=== PATIENT | male | born 1970 | race Two or more races ===

== ENCOUNTER 2019-10-29 06:06 | Inpatient (IN) | payer OTHER ==
[2019-10-29] VITALS (16 sets, daily range): BP systolic 117–158; BP diastolic 74–93
[~2019-10-29] VITALS: Ht 175.3 cm; Wt 88.9 kg
[~2019-10-29 06:06] MED LIST: VALIUM5 MG ORAL
[2019-10-29] MEDS ORDERED: Rocuronium Bromide 50mg/5ml Inj IV ONE (06:31)
[2019-10-29] MEDS ORDERED: Sodium Chloride 10ml vial INJ ONE (06:38)
[2019-10-29] MEDS ORDERED: LR 1000ml 1,000 ML IVLG SCH (06:50)
[2019-10-29] MEDS ORDERED: Pantoprazole Inj IVP ONE (07:00)
[2019-10-29] MEDS ORDERED: Meperidine 25mg/0.5ml Inj (FOR RIGORS ONLY) IV PRN (07:00)
[2019-10-29] MEDS ORDERED: Propofol 1,000mg/ 100ml btl IV ONE (07:00)
[2019-10-29] MEDS ORDERED: Vancomycin 1gm/D5W 275ml IVPB SCH ×2 (07:00)
[2019-10-29] MEDS ORDERED: LORazepam Inj 2mg/ml 1ml IV PRN (07:00)
[2019-10-29] MEDS ORDERED: oxyCODONE HCL/Acetaminophen 5/325mg ORAL PRN (07:00)
[2019-10-29] MEDS ORDERED: Labetalol 5mg/ml 20ml vial IV PRN (07:00)
[2019-10-29] MEDS ORDERED: HYDROcodone/Acetamin 7.5/325 tab ORAL PRN (07:00)
[2019-10-29] MEDS ORDERED: HYDROcodone/Acetamin 5/325 tab ORAL PRN (07:00)
[2019-10-29] MEDS ORDERED: Hydromorphone 0.5mg/0.5ml inj IVP PRN (07:00)
[2019-10-29] MEDS ORDERED: Metoclopramide 10mg/2ml Inj IVP PRN ×2 (07:00→12:45)
[2019-10-29] MEDS ORDERED: Midazolam 2mg/2ml Inj IVP PRN (07:00)
[2019-10-29] MEDS ORDERED: Acetaminophen (Non formulary) 100 ML IV ONE (07:00)
[2019-10-29] MEDS ORDERED: Atropine Sulfate 0.4mg/ml inj IVP PRN (07:00)
[2019-10-29] MEDS: Magnesium Sulfate 1gm/100ml IVPB SCH ×2 (07:00→08:00)
[2019-10-29] MEDS ORDERED: DiphenhydrAMINE 50mg/ml Inj IVP PRN (07:00)
[2019-10-29] MEDS ORDERED: fentaNYL 100 mcg/2 mL IV PRN (07:00)
[2019-10-29] MEDS ORDERED: Ketorolac 30mg Inj IV PRN ×2 (07:00)
[2019-10-29] MEDS ORDERED: Dexamethasone 4mg/ml vial ONE (07:07)
[2019-10-29] MEDS ORDERED: Lidocaine 1% MPF 10mg/ml 5ml ONE (07:07)
[2019-10-29] MEDS ORDERED: Heparin 1000 units/ml 1ml Vial ONE (07:10)
[2019-10-29] MEDS ORDERED: Thrombin 5000 units spray kit TOPIC ONE (07:11)
[2019-10-29] MEDS ORDERED: Gelfoam Size TOPIC ONE ×2 (07:11→07:43)
[2019-10-29] MEDS ORDERED: Thrombin 5000 units TOPIC ONE (07:11)
[2019-10-29] MEDS ORDERED: Bupivacaine w/Epi 0.5% 30ml Vial INJ ONE (07:11)
[2019-10-29] MEDS ORDERED: Bacitracin 50000 Units Vial ONE (07:12)
[2019-10-29] MEDS ORDERED: Gelfoam Absorbable 1gm powder pkt TOPIC ONE (07:12)
[2019-10-29] MEDS ORDERED: Lidocaine 1% Plain 30 ml INJ ONE ×2 (07:14→09:33)
--- NOTE | 2019-10-29 07:30 | Anethesia Preoperative Eval ---
Anesthesia Pre-op PMH/ROS General Date of Evaluation: Oct 29, 2019 Time of Evaluation: 07:46 Anesthesiologist: Michel ASA Score: ASA 3 Mallampati Score Class I : Soft palate, uvula, fauces, pillars visible Class II: Soft palate, uvula, fauces visible Class III: Soft palate, base of uvula visible Class IV: Only hard plate visible Mallampati Classification: Class II Surgeon: Parviz Diagnosis: Neck Pain Surgical Procedure: ACDF C5-6, C6-7, ADR C4-5 Anesthesia History: none Social History: current smoker, alcohol use, drug use - Marijuana Family History: no anesthesia problems Allergies: Coded Allergies: No Known Allergies (Unverified , 10/12/19) Medications: see eMAR Patient NPO?: Yes NPO Date: Oct 28, 2019 NPO Time: 2099 Past Medical History Gastrointestinal/Genitourinary: Reports: other - Renolithiasis Anesthesia Pre-op Phys. Exam Physician Exam Last Vital Signs Date Time Temp Pulse Resp B/P (MAP) Pulse Ox O2 Delivery O2 Flow Rate FiO2 10/29/19 07:14 Room Air 10/29/19 07:04 98.1 66 18 120/80 (93) 96 Constitutional: NAD Neurologic: CN 2-12 intact Cardiovascular: RRR Respiratory: CTA Gastrointestinal: S/NT/ND Airway Exam Mallampati Score: Class II MO: full ROM: limited Teeth: missing, intact Anesthesia Pre-op A/P Risk Assessment & Plan Assessment: ASA 3 Plan: GA, SED, GlideScope Go Status Change Before Surgery: No Pre-Antibiotics Dru Gram Ancef IV Given Within 1 Hr of Incision: Yes Time Given: 08:01 Zeyad Pearson MD Oct 29, 2019 07:30
--- NOTE | 2019-10-29 07:38 | Pre-Procedure Note/Attestation ---
Pre-Procedure Note/Attestation Complete Prior to Procedure Planned Procedure: bilateral Procedure Narrative: Anterior cervical discectomy fusion stabilization at C5-6 and C6-7 levels, arthrodesis, use of allograft, autograft and iliac crest bone marrow aspirate and disc arthroplasty at the C4-5 level Attestation I attest that I discussed the nature of the procedure; its benefits; risks and complications; and alternatives (and the risks and benefits of such alternatives ), prior to the procedure, with the patient (or the patient's legal veterans contact representative). I attest that, if there was a reasonable possibility of needing a blood transfusion, the patient (or the patient's legal veterans contact representative) was given the [place] [employer] standardized written summary, pursuant to the [place] Blood Safety Act ([place] Health and Safety Code # 1645, as amended). I attest that I re-evaluated the patient just prior to the surgery and that there has been no change in the patient's H&P, except as documented below: Demi Jj MD Oct 29, 2019 07:38
[2019-10-29] MEDS ORDERED: Glycopyrrolate 0.2mg/ml 1ml Vial ONE ×2 (07:46→11:44)
[2019-10-29] MEDS ORDERED: LR 1000ml ONE (07:46)
[2019-10-29] MEDS ORDERED: Sterile Water Irrig 1000ml IRRIG ONE (07:46)
--- NOTE | 2019-10-29 08:28 | Immediate Post-Op Evaluation ---
Immediate Post-Op Evalulation Immediate Post-Op Evalulation Procedure: ACDF C5-6, C6-7, ADR C4-5 Date of Evaluation: Oct 29, 2019 Time of Evaluation: 12:45 IV Fluids: 900 LR Blood Products: 0 Estimated Blood Loss: 50 Urinary Output: 300 Blood Pressure Systolic: 137 Blood Pressure Diastolic: 86 Pulse Rate: 72 Respiratory Rate: 16 O2 Sat by Pulse Oximetry: 100 Pain Score (1-10): 3 Nausea: No Vomiting: No Complications 0 Patient Status: awake, reacts, patent, extubated, none Hydration Status: adequate Dru Gram Ancef IV Given Within 1 Hr of Incision: Yes Time Given: 08:01 Zeyad Pearson MD Oct 29, 2019 08:28
[2019-10-29] MEDS ORDERED: fentaNYL 100 mcg/2 mL IV ONE (10:14)
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
[2019-10-29] MEDS ORDERED: Milk of Magnesia 30ml Ud ORAL PRN (12:45)
--- NOTE | 2019-10-29 12:48 | Diagnostic Imaging Report ---
Indication: Intraoperative imaging COMPARISON: None FINDINGS: Multiple fluoroscopic images were obtained intraoperatively. Localization film with the marker over C4-5 disc demonstrated. Subsequent images showing cervical discectomy at this level and anterior fusion at C5-C6 and C7. Discectomy also noted at the 2 intervening levels. IMPRESSION: Intraoperative imaging as described above
--- NOTE | 2019-10-29 12:56 | General Progress Note ---
Progress Note Progress Note neurosuregry POst op check S/ Comfortable O/ Last 24 Hour Vital Signs Date Time Temp Pulse Resp B/P (MAP) Pulse Ox O2 Delivery O2 Flow Rate FiO2 10/29/19 12:47 76 17 142/91 99 Nasal Cannula 3 10/29/19 12:37 82 14 139/80 100 Simple Mask 6 10/29/19 12:32 84 16 141/90 100 Simple Mask 6 10/29/19 12:29 72 16 100 10/29/19 12:27 97.7 77 26 137/86 100 Simple Mask 6 10/29/19 07:14 Room Air 10/29/19 07:04 98.1 66 18 120/80 (93) 96 Alert and oriented x 3 Moves all extremities well Incisions are dry and clean Normal sensation in the upper and lower extremities. doing well observe internal medicine consult Family updated Demi Jj MD Oct 29, 2019 12:56
--- NOTE | 2019-10-29 14:00 | NUR ---
NURSE NOTES: Patient arrived to unit via bed, accompanied by RN, patient at bedside. Received report from Christine VIRK. Patient is awake and oriented, no acute distress noted, reporting no pain at this time, neuro check assessed, patient reporting no numbess/tingling in extremities, able to move all extremities. Surgical site dressings over anterior neck and left iliac crest clean, dry, intact, soft cervical collar in place. IV intact, patent, patient on 2L NC. Oriented to room, updated on plan of care, all patient's belongings are with . Patient provided with urinal. Side rails upx3, bed low and locked, call light within reach.
[2019-10-29] MEDS: NS w/KCl 20mEq 1000ml 1,000 ML IV SCH (15:21)
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
[2019-10-29] MEDS: HYDROcodone/Acetamin 7.5/325 tab ORAL PRN (17:28)
--- NOTE | 2019-10-29 18:35 | NUR ---
NURSE NOTES: Received call from Dr. Parviz MD provided with update on patient status. New orders received, read back, and entered. Per MD, call Dr. Sawyer for any internal medicine issues.
[2019-10-29] MEDS: Docusate 100mg cap ORAL SCH (18:50)
--- NOTE | 2019-10-29 19:31 | NUR ---
HAND-OFF: Report given to Donal VIRK.
--- NOTE | 2019-10-29 19:35 | NUR ---
NURSE NOTES: Receive a report from MOOSE Edmondson. Round is done. Pt is awake and alert, Maltese speaking. Breathing is even and non labored. Cervical surgery site dressing kept dry and clean with cervical collar. Pain is 8/10. Will provide pain medication as ordered. On SCDs L/E bilaterally. On O2 2L NC. IV is running on rt. AC without infiltration. Provide post-op care. Call light within reach. Will continue to monitor.
--- NOTE | 2019-10-29 20:30 | NUR ---
NURSE NOTES: Given Zofran IVS for nausea sensation instead of pain medication by pt's request. Will continue to follow up pain. No SANDOVAL noted. Sensory on left hand is recovering by 80%. Encourage deep breathing and coughing for lung care with L/E ROM. Pt shows appreciation for information. Will continue to monitor.
[2019-10-29] MEDS: Vancomycin 1 GM in D5W 275 ML IVPB SCH (21:44)
[2019-10-29] MEDS: Hydromorphone 0.5mg/0.5ml inj IVP PRN (21:54)
[2019-10-30] VITALS: BP 129/84
--- NOTE | 2019-10-30 | NUR ---
NURSE NOTES: No acute distress noted. Pain level decreased after pain medication earlier without N/V. Spo2 maintains 96% without O2. Provide ice chips for dryness and phlegm. Will have clear liquid diet for breakfast and will follow up for advance diet. Will continue to monitor.
[2019-10-30] MEDS: Hydromorphone 0.5mg/0.5ml inj IVP PRN ×3 (02:52→13:39)
[2019-10-30 04:00] VITALS: BP 130/86
[2019-10-30] MEDS: NS w/KCl 20mEq 1000ml 1,000 ML IV SCH ×2 (05:13→15:12)
--- NOTE | 2019-10-30 07:30 | NUR ---
HAND-OFF: Report given to MOOSE Lane.
[2019-10-30 08:00] VITALS: BP 130/87
[2019-10-30] MEDS: Docusate 100mg cap ORAL SCH ×2 (08:46→17:22)
[2019-10-30] MEDS: Vancomycin 1 GM in D5W 275 ML IVPB SCH (08:47)
--- NOTE | 2019-10-30 08:58 | 48 Hour Post Anesthesia Eval ---
Post Anesthesia Evaluation Procedure: ACDF C5-6, C6-7, ADR C4-5 Date of Evaluation: Oct 30, 2019 Airway: patent Nausea: Yes - intermittent, mild Vomiting: No Hydration Status: adequate Cardiopulmonary Status: at bseline Mental Status/LOC: patient returned to baseline Post-Anesthesia Complications: 0 Follow-up care needed: N/A - further care as per primary team Jessica Ramirez MD Oct 30, 2019 08:58
--- NOTE | 2019-10-30 09:35 | NUR ---
PT EVALUATION NOTE Patient seen for initial evaluation. Patient presents with pain and impaired functional mobility s/p cervical surgery. Patient instructed in cervical precautions, use of cervical collar and log roll technique for in/OOB. Patient required min assist to come to sitting at the EOB, CGA for transfers without assistive device. Patient able to ambulate 200 ft with SBA, slightly unsteady however no loss of balance. Patient will benefit from skilled inpatient PT intervention to address balance and compliance with cervical precautions for improved level of independence with functional mobility. Anticipate discharge home once medically cleared by MD. No DME needs identified at this time. Addendum: 10/30/19 at 1106 by JANNA VÁZQUEZ PT Amended: Links added.
[2019-10-30 11:21] VITALS: BP 135/90
--- NOTE | 2019-10-30 11:57 | Diagnostic Imaging Report ---
Indication: Neck Pain Findings: 2 views of the cervical spine were obtained. Limited 2 view evaluation of the cervical spine postoperatively showing recent anterior discectomy and fusion with anterior compression plate and screws C5-C6 and C7. The C7 level is not well seen due to obscuration by the shoulders. Prosthetic discs noted at the C5-6 and C6-7 levels. There is also a prosthesis with discectomy replacement at C4-5. There is narrowing of the C3-4 intervertebral discs. Marginal endplate spurs noted are multiple levels. Prevertebral soft tissue swelling and air present as expected given the anterior approach and the surgery performed recently. IMPRESSION: Status post recent anterior cervical discectomy and fusion as described above. Postsurgical changes noted.
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
[2019-10-30 16:00] VITALS: BP 132/82
[2019-10-30] MEDS: HYDROcodone/Acetamin 7.5/325 tab ORAL PRN ×3 (17:01→23:34)
--- NOTE | 2019-10-30 19:00 | NUR ---
NURSE NOTES: QUIET IN BED. IN NO DISTRESS.
--- NOTE | 2019-10-30 19:41 | NUR ---
NURSE NOTES: Received report from RN Ariana pt is a/ox4,no s/s of respiratory distress, breaths even regular and unlabored on RA. Monitoring pt s/p surgery pt c/o of pain 02/05, will provide medications as ordered , pt continues neural checks . Pt has no i.v acces . bed in low locked position and call light with in reach
--- NOTE | 2019-10-30 19:53 | NUR ---
HAND-OFF: Report given to Stephanie OLIVIA RN.
[2019-10-30 20:00] VITALS: BP 130/81
--- NOTE | 2019-10-30 20:33 | General Progress Note ---
Progress Note Progress Note Neurosurgery post-op S/ Incisonal pain controlled with IV and po Narcotics. Ambulated several times. Tolerating po's. Voided. No BM on stool sodtner. Increase sensation in the left side. Increase dexterity and sensation in the hands bilaterally. O/ Last 24 Hour Vital Signs Date Time Temp Pulse Resp B/P (MAP) Pulse Ox O2 Delivery O2 Flow Rate FiO2 10/30/19 17:31 99.3 10/30/19 16:00 99.3 109 18 132/82 (99) 96 10/30/19 14:09 98.6 10/30/19 11:21 98.6 100 18 135/90 (105) 95 10/30/19 09:26 Room Air 10/30/19 08:00 97.4 100 18 130/87 (101) 95 10/30/19 04:00 98.5 98 18 130/86 (101) 96 10/30/19 00:00 98.4 101 18 129/84 (99) 96 10/29/19 21:00 Nasal Cannula 2.0 On exam Incisions are C/D/I. Cervical dressing changed. Voice is normal. Left shoulder moderate tenderness due to positioning. Normal strength distally A/p continue PT. encourage po's ambulate continue with cervical collar d/c planing Demi Jj MD Oct 30, 2019 20:33
[2019-10-31] VITALS: BP 128/87
[2019-10-31 04:00] VITALS: BP 133/78
[2019-10-31] MEDS: HYDROcodone/Acetamin 7.5/325 tab ORAL PRN ×5 (04:15→21:05)
--- NOTE | 2019-10-31 07:56 | NUR ---
HAND-OFF: Report given to FRANCIS Avelar.
[2019-10-31 08:00] VITALS: BP 139/83
--- NOTE | 2019-10-31 08:19 | NUR ---
NURSE NOTES: Received patient in bed awake. No SOB or acute distress. Neck collar in place. For discharge tomorrow. HOB elevated. Bed locked in lowest position. Call light within reach. Will continue plan of care.
[2019-10-31] MEDS: Docusate 100mg cap ORAL SCH ×2 (09:22→17:15)
--- NOTE | 2019-10-31 09:22 | General Progress Note ---
Assessment/Plan Status Narrative s/p complex spine fusion cervixcal PT OT DVt prophyalxis had perioperative antibiotc prophyalxis paincontrol valium for muscle spasm. Subjective Date patient seen: Oct 31, 2019 Time patient seen: 09:20 Allergies: Coded Allergies: No Known Allergies (Unverified , 10/12/19) Subjective has pain nofever[place] no sob no nausea Objective Last 24 Hour Vital Signs Date Time Temp Pulse Resp B/P (MAP) Pulse Ox O2 Delivery O2 Flow Rate FiO2 10/31/19 04:00 98.9 88 20 133/78 (96) 96 10/31/19 00:00 98.2 92 18 128/87 (101) 96 10/30/19 21:00 Room Air 10/30/19 20:00 99.4 111 16 130/81 (97) 96 10/30/19 17:31 99.3 10/30/19 16:00 99.3 109 18 132/82 (99) 96 10/30/19 14:09 98.6 10/30/19 11:21 98.6 100 18 135/90 (105) 95 10/30/19 09:26 Room Air Intake and Output 10/30/19 10/31/19 19:00 07:00 Intake Total 1650 ml 240 ml Output Total 1350 ml Balance 300 ml 240 ml Intake Oral 1000 ml 240 ml IV Total 650 ml Output Urine Total 1350 ml # Voids 1 2 Height (Feet): 5 Height (Inches): 9.00 Weight (Pounds): 196 General Appearance: WD/WN Neck: other - wearing soft collar Cardiovascular: normal rate, regular rhythm Respiratory/Chest: lungs clear Abdomen: non tender, soft Extremities: other - no edema David Sawyer MD Oct 31, 2019 09:22
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
[2019-10-31 12:00] VITALS: BP 137/95
[2019-10-31 16:00] VITALS: BP 138/89
--- NOTE | 2019-10-31 16:17 | NUR ---
CASE MANAGEMENT: REVIEW 10/31/19 SI:S/P ANTERIOR CERVICAL DISCECTOMY FUSION STABILIZATION AT C5-6 AND C6-7 LEVEL ARTHRODESIS USE OF ALLOGRAFT, AUTOGRAFT AND ILIAC CREST BONE MARROW ASPIRATE AND DISC ARTHROPLASTY AT THE C4-5 LEVEL 99.3 96 20 137/95 97% ON RA IS:IV DILAUDID Q2HR/PRN VALIUM PO BID DILAUDID Q2HR/PRN NORCO Q3HR/PRN DECADRON PO Q6HR X4 DOSES \: 3E MED SURG UNIT DCP: HOME WHEN STABLE PLAN: DC IN AM IF STABLE PT EVAL AND TREAT
--- NOTE | 2019-10-31 19:30 | NUR ---
NURSE NOTES: Received report from MOOSE Rea. Pt is awake, lying semi-walters's; comfortably resting. Family at bedside. No signs of acute distress noted. Pt denies any pain at this time. AOx4; able to make needs known. No IV site noted. No erythema, bleeding, or infiltration. Dressing intact. Bed at lowest position. Brakes on. Siderails up x2. Call light within reach. Will continue to monitor.
--- NOTE | 2019-10-31 19:57 | NUR ---
HAND-OFF: Report given to jl.
[2019-10-31 20:00] VITALS: BP 143/94
[2019-11-01] VITALS: BP 118/77
[2019-11-01] MEDS: HYDROcodone/Acetamin 7.5/325 tab ORAL PRN ×3 (02:50→09:22)
[2019-11-01 04:00] VITALS: BP 131/80
--- NOTE | 2019-11-01 07:50 | NUR ---
NURSE NOTES: Patient is in bed awake and able to verbalize needs. Stable. Denies pain or SOB. Patient instructed to use call light for assistance, verbalized understanding. Patient's surgical dressing c/d/i. Patient is in bed in locked and lowest position with call light within reach. All needs met at this time. Will continue to monitor.
--- NOTE | 2019-11-01 07:50 | NUR ---
HAND-OFF: Report given to MOOSE Nails. Pt is awake and in stable condition. Plan of care endorsed.
[2019-11-01 08:00] VITALS: BP 128/88
[2019-11-01] MEDS: Docusate 100mg cap ORAL SCH (08:16)
--- NOTE | 2019-11-01 09:53 | NUR ---
NURSE NOTES: Faxed prescription to [facility] pharmacy as requested by patient. patient changed his mind and cancelled with [facility] pharmacy and stated that he will take prescription to own pharmacy to get meds filled with assistance of roller turner. Patient has prescriptions.
--- NOTE | 2019-11-01 10:20 | NUR ---
NURSE NOTES: Patient discharged home as ordered. Stable. Denies pain or SOB. Patient has all belongings. Thorough discharge instructions given to patient by RN. Patient verbalized understanding. Patient has prescription and stated that he will get them filled at his own pharmacy. Patient was given thorough medication teaching by RN, verbalized understanding. Written instructions given to patient regarding post op care, patient acknowledged instructions after RN went over with patient. Patient's skin is c/d/i. Surgical dressing is c/d/i. Cervical collar in place. Patient assisted downstairs by staff without incident. No IV access.
[2019-11-01] MEDS ORDERED: Tubing IV Secondary IV ONE (10:24)
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
== END 2019-11-01 10:25 | disposition home or self-care (01) | DRG 29 ==
LOC: SDSOVERFLO 06:06 → 3E 14:08
PROC: 0RG2070 Fusion of 2 or more Cervical Vertebral Joints with Autologous Tissue Substitute, Anterior Approach, Anterior Column, Open Approach (ICD-10-PCS; principal; 2019-10-29 07:30)
PROC: 0RG20A0 Fusion of 2 or more Cervical Vertebral Joints with Interbody Fusion Device, Anterior Approach, Anterior Column, Open Approach (ICD-10-PCS; principal; 2019-10-29 07:30)
PROC: 4A11X4G Monitoring of Peripheral Nervous Electrical Activity, Intraoperative, External Approach (ICD-10-PCS; principal; 2019-10-29 07:30)
PROC: 0RT30ZZ Resection of Cervical Vertebral Disc, Open Approach (ICD-10-PCS; principal; 2019-10-29 07:30)
PROC: 01N Peripheral Nervous System, Release (ICD-10-PCS; principal; 2019-10-29 07:30)
PROC: 07DR3ZZ Extraction of Iliac Bone Marrow, Percutaneous Approach (ICD-10-PCS; principal; 2019-10-29 07:30)
PROC: 0RQ Upper Joints, Repair (ICD-10-PCS; principal; 2019-10-29 07:30)
DX: M54.12 Radiculopathy, cervical region (principal); G95.29 Other cord compression; M48.02 Spinal stenosis, cervical region
CPT/HCPCS: 36415; 72040; 76000; 86850; 86900; 86901; 87081; 94003; 94150; J2405; J7030